=== PATIENT | female | born 2005 | race Caucasian/White ===

== ENCOUNTER 2024-08-11 17:20 | Emergency (ER) | payer OTHER, SELFPAY ==
[2024-08-11 17:22] VITALS: BP 136/74
[2024-08-11 18:36] VITALS: BMI 41.8
[2024-08-11 18:46] LABS: % Basophils 0.6 % (0-2); % Eosinophils 1.1 % (0-6); % Immature Granulocytes 0.4 % (0-0.5); % Lymphocytes 15.9 % (20.5-51.1); % Monocytes 6.1 % (1.7-9.3); % Neutrophils 75.9 % (42.2-75.2); Absolute Eosinophils 0.1 10^3/uL (0-0.7); Absolute Lymphocytes 0.8 10^3/uL (1.2-3.4); Absolute Monocytes 0.3 10^3/uL (0.1-0.6); Hematocrit 39.2 % (37.0-47.0); Hemoglobin 13.4 g/dL (12.0-16.0); Mean Corp Hgb Conc. 34.2 g/dL (33.0-37.0); Mean Corpuscular Hgb 28.2 pg (27.0-31.0); Mean Corpuscular Volume 82.5 fL (81.0-99.0); Mean Platelet Volume 10.5 fL (7.4-10.4); Nucleated Red Blood Cells % 0 %; Platelet Count 177 10^3/uL (130-400); Red Blood Cell Count 4.75 10^6/uL (4.20-5.40); Red Cell Dist. Width 12.1 % (11.5-14.5); White Blood Cell Count 5.2 10^3/uL (4.8-10.8)
--- NOTE | 2024-08-11 18:49 | ED.GENMED ---
History of Present Illness
General
Chief Complaint: Abdominal Pain
Source: patient
Exam Limitations: none
Time Seen by Provider: 08/11/24 17:46
History of Present Illness
History of Present Illness:
18-year-old female complaining of epigastric pain she gets this daily and continuously. Some episodes of nausea. Speech had this for 10 years. She has been seen at [facility] she has seen GI numerous times she has had ultrasounds CTs has been scoped.
They feel this is nerve pain. Today's episode was worse. They called the GI group who recommended ER evaluation.
Past History
Past History
ED Past Medical History: HTN, Psychiatric and Other (IBS)
ED Past Surgical History: Tonsilectomy and Other (Myringotomy tubes); Negative Gynecological
Social History
Tobacco: Non-smoker
Alcohol: None
Drug: None
Personal: Single
Living: with family
Employment: Student
Family History
Family History: Other (Noncontributory)
Review of Systems
Review of Systems
All Other Systems: Not applicable
Constitutional: Denies fever or chills
Respiratory: Reports no symptoms
Cardiac: Reports no symptoms
Phy Exam
Physical Exam
Physical Exam:
GENERAL: Alert and oriented in no apparent distress
EYE: Orbits normal.
NECK: Supple
CARDIAC: Regular rate and rhythm without any obvious murmurs.
LUNGS: Clear breath sounds,normal
ABDOMEN: Soft, bowel sounds present. Mild reproducible epigastric tenderness. No rebound or guarding no mass or hernia
NEUROLOGICAL: Alert and oriented , grossly non-focal
SKIN: Warm and dry, no rash or lesion, no discoloration, skin intact.
MUSCULOSKELETAL: No edema,no deformity.Good color
PSYCH: Normal and appropriate interaction.
Course
Orders/Labs/Results
Orders:
Orders
08/11/24 17:52
IV Insert/Care/Rem.- Treatment PRN
Test Result ONCE
US Abdomen Complete/Upper Urgent
Comment:
Reason For Exam: Upper abdominal pain
08/11/24 18:00
EKG [Electrocardiogram (*1)] Urgent
Reason for Study: QTc Monitoring
EKG- Treatment ONCE
0.9% Sodium Chloride 1000 ml [Nss] 1,000 ml IV BOLUS
08/11/24 18:40
Complete Blood Count/With Diff Urgent
Comprehensive Metabolic Panel Urgent
HCG, Serum Qualitative Screen Urgent
Lipase Urgent
08/11/24 18:52
Urinalysis Reflex To Culture Urgent
Date Specimen was Collected: 08/11/24
Time Specimen was Collected: 18:51
Urine Microscopic Reflex Cult Urgent
Urine Culture Urgent
CR Source: U
Specimen Description:
Date Specimen was Collected: 08/11/24
Time Specimen was Collected: 18:51
08/11/24 19:50
Diphenhydramine [Benadryl] 25 mg IV NOW STA
08/11/24 19:51
Metoclopramide [Reglan] 5 mg IV NOW STA
Abnormal Lab Results
08/11/24 08/11/24
18:40 18:52
MPV 10.5 H fL
(7.4-10.4)
Absolute Lymphs (auto) 0.8 L 10^3/uL
(1.2-3.4)
Neutrophils % 75.9 H %
(42.2-75.2)
Lymphocytes % 15.9 L %
(20.5-51.1)
Urine Ketones 3+ A
(Negative)
Ur Occult Blood Reflex 2+ A
(Negative)
Urine Bilirubin 1+ A
(Negative)
Urine Urobilinogen 3+ A
(Neg - 1+)
Leukocyte Esterase Rfl Trace A
(Negative)
Urine Bacteria (Reflex) Moderate A
(Negative)
Urine Albumin (Reflex) 1+ A
(Neg - Trace)
08/11/24 18:40
08/11/24 18:40
Vital Signs
Initial and Last Documented VS:
Initial Vital Signs
Temp Pulse Resp BP Pulse Ox
99.6 F 104 16 136/74 98
08/11/24 17:22 08/11/24 17:22 08/11/24 17:22 08/11/24 17:22 08/11/24 17:22
Last Documented Vital Signs
Temp Pulse Resp BP Pulse Ox
99.6 F 69 18 137/73 96
08/11/24 17:22 08/11/24 20:22 08/11/24 20:22 08/11/24 20:22 08/11/24 20:22
MDM/Problems Addressed
Differential Diagnosis Includes:
Patient with chronic epigastric pain multiple workups in the past apparently have been unremarkable. CT scan in June 11 and ultrasound in June 11 were negative. It is unlikely we are going to find an explanation for patient's symptoms.
Workup to rule out serious or acute life-threatening etiology. Medically stable
*Radiology
Radiology exam reviewed: radiology read reviewed (Mildly enlarged spleen)
*Pulse Oximetry
Patient hypoxic: no
*EKG
Interpreted by ED Provider?: Yes
Interpretation: normal
Comparison EKG: no comparison EKG present
Heart Rate: 98
Rate: normal
Rhythm: sinus
[place]: normal axis
Interval: normal interval
QRS Pattern: normal QRS
*Critical Care Note
Total Time (30-74mins, 75-104mins- exclusive of procedures): Not Applicable
Data Reviewed
Review of Other/Old Records Reveals: Labs, Records and Testing
Update Note
Update Note:
Patient is remained medically stable and nontoxic. This appears to be a chronic issue. She is on multiple antinausea medications chronically including Compazine and Reglan promethazine. She has took Compazine this morning. As I explained to her,
I have no expectation we will get to a resolution of her issues she understands this. We will continue to hydrate her. Given the normal QT interval and Compazine in the morning we will try some IV Reglan with Benadryl just to make her feel better.
She is understanding this will lead to discharge and follow-up. She is also aware of the mild splenomegaly. She did finish her menses 2 days ago. Likely the hematuria is leftover from her menses. Urine does have moderate bacteria but there is
0-2 whites trace leukocyte with negative nitrite. Not consistent with her symptoms.
ED Attending Note
-
Portions of this chart may have been created with voice recognition software.� Occasional wrong word or��sound alike� substitutions may have occurred due to the inherent limitations of voice recognition software.
Discharge Plan
Departure
Patient Disposition: Home (Routine Discharge)
Patient with high blood pressure during this ER visit?: Yes
Discharge Problem:
Recurrent epigastric pain/vomiting
Instructions: Nausea and Vomiting, Adult (DC), Abdominal Pain, BLOOD PRESSURE
Prescriptions:
No Action
ondansetron 4 MG tablet,disintegrating
4 mg PO TIDPRN PRN (Reason: nausea) Qty: 10 0RF
loperamide [Imodium A-D] 2 mg capsule
2 mg PO Q6H PRN (Reason: loose stool) Qty: 20 0RF
naltrexone 50 mg Tablet
50 mg PO BID
bupropion HCl [Wellbutrin] 100 mg Tablet
100 mg PO BID
citalopram [Celexa] 20 mg Tablet
20 mg PO DAILY
ziprasidone HCl [Geodon] 20 mg Capsule
20 mg PO HS
lisinopril 10 mg Tablet
10 mg PO DAILY
hydroxyzine HCl 10 mg Tablet
10 mg PO BID PRN (Reason: anxiety)
prazosin 2 mg Capsule
2 mg PO HS
cholecalciferol (vitamin D3) [Vitamin D3] 125 mcg (5,000 unit) Tablet
125 mcg PO DAILY
promethazine 12.5 mg tablet
25 mg PO TID PRN (Reason: nausea and vomiting) Qty: 14 0RF
Referrals:
yuridia bueno [Other]
Activity Restrictions/Additional Instructions:
Follow-up closely with your primary physician and GI physician
Return sooner with increasing pain increasing vomiting fever etc.
Interventions
Interventions:
*Risk Screen - Suicide Last Done: 08/11/24 17:22
*General Assessment Last Done: 08/11/24 17:22
*Neglect/Abuse Screening Last Done: 08/11/24 17:22
ED- Fall Risk Assessment Last Done: 08/11/24 18:56
*ED COVID-19 Vaccine History Last Done: 08/11/24 18:36
*Nursing Disposition Last Done: 08/11/24 21:46
[facility]-Yvmuim-Yrbwrzhzpu Assessment Last Done: 08/11/24 18:56
Discharge Date and Time
Discharge Date/Time: 08/11/24 21:46
Print Language: [id number]
[2024-08-11] MEDS: NSS 1000 IV (18:50)
[2024-08-11 18:53] VITALS: BP 141/84
[2024-08-11 19:01] LABS: Urine Albumin 1+ (Neg - Trace); Urine Bilirubin 1+ (Negative); Urine Character Clear (Clear); Urine Color Yellow; Urine Glucose Negative (Negative); Urine Ketone 3+ (Negative); Urine Leukocyte Trace (Negative); Urine Nitrite Negative (Negative); Urine Occult Blood 2+ (Negative); Urine Urobilinogen 3+ (Neg - 1+)
[2024-08-11 19:04] LABS: HCG, Serum Qualitative Screen Negative
[2024-08-11 19:07] LABS: ALT (SGPT) 15 U/L (0-35); AST (SGOT) 22 U/L (14-36); Albumin 3.9 g/dl (3.5-5.0); Alkaline Phosphatase 45 U/L (38-126); Blood Urea Nitrogen 12 mg/dl (7-17); Calcium 8.7 mg/dl (8.4-10.2); Carbon Dioxide 24 mmol/L (22-30); Chloride 101 mmol/L (98-107); Estimated Creatinine Clearance > 125 ml/min; Glucose 87 mg/dl (70-99); Lipase 91 U/L (23-300); Potassium 3.8 mmol/L (3.5-5.1); Sodium 140 mmol/L (135-145); Total Protein 6.6 g/dl (6.3-8.2); eGFR > 60.00
[2024-08-11 19:13] LABS: Urine Mucus Moderate; Urine Red Blood Cell 0-2 /HPF (0-2)
[2024-08-11 19:14] LABS: Urine Bacteria Moderate (Negative); Urine White Cell 0-2 /HPF (0-5)
[2024-08-11] MEDS: REGLAN 5 MG IV (20:19)
[2024-08-11] MEDS: BENADRYL 25 MG IV (20:19)
[2024-08-11 20:22] VITALS: BP 137/73
== END 2024-08-11 21:46 | disposition home or self-care (01) ==
LOC: EMR 17:20
PROVIDERS: EMERGENCY PHYSICIAN Emergency Medicine
DX: R10.13 Epigastric pain (principal); R11.2 Nausea with vomiting, unspecified; I10 Essential (primary) hypertension; R16.1 Splenomegaly, not elsewhere classified
CPT/HCPCS: 96374; 96375; 96361; 99284; 76700; 80053; 81003; 81015; 83690; 84703; 85025; 87086; 93005

== ENCOUNTER → 2024-11-23 13:41 | Outpatient (REF) | payer OTHER, SELFPAY | LOC: RAD 13:41 | PROVIDERS: ATTENDING PHYSICIAN Internal Medicine | DX: R10.84 Generalized abdominal pain (principal) | CPT/HCPCS: 74019 ==

== ENCOUNTER → 2025-01-31 13:05 | Outpatient (REF) | payer OTHER, SELFPAY | LOC: RAD 13:05 | PROVIDERS: ATTENDING PHYSICIAN Nurse Practitioner Adult Health | DX: T85.598D Other mechanical complication of other gastrointestinal prosthetic devices, implants and grafts, subsequent encounter (principal) | CPT/HCPCS: 74018 ==